=== PATIENT | female | born 1960 | race Caucasian/White ===

== ENCOUNTER 2018-11-12 06:32 | Day surgery (SDC) | payer OTHER, MEDICAID ==
[~2018-11-12] VITALS: Ht 160 cm; Wt 117.9 kg
[~2018-11-12 06:32] MED LIST: ALBU0.63 NEB; BUPIVACAINE-EPI 0.25%-1:200000 MPF 30 ML VIAL. ONE; DULO60CA6 PO; HYDR25TA PO; LOPE2CAP PO; PANTOPRAZOLE PO; PROP20TA PO; SURGICEL HEMOSTAT 4X8 EACH. ONE; TRAZ-86 PO; ZOLP5TAB5 PO
[2018-11-12] MEDS ORDERED: PROCHLORPERAZINE 10 MG/2 ML VIAL. IV PRN (07:00)
[2018-11-12] MEDS ORDERED: IV RINGERS,LACTATED 1000ML 1,000 ML IV SCH (07:00)
[2018-11-12] MEDS ORDERED: ACETAMINOPHEN 500 MG TABLET PO ONE (07:00)
[2018-11-12] MEDS ORDERED: fentaNYL PF VIAL 100 MCG/2 ML VIAL IV PRN (07:00)
[2018-11-12] MEDS ORDERED: LIDOCAINE 2% PF 5 ML VIAL. ONE (07:26)
[2018-11-12] MEDS ORDERED: PROPOFOL 20 ML IV ONE (07:26)
[2018-11-12] MEDS ORDERED: ROCURONIUM 50 MG/5 ML VIAL. ONE (07:27)
[2018-11-12] MEDS ORDERED: ONDANSETRON PF 4 MG/2 ML VIAL. ONE (07:27)
[2018-11-12] MEDS ORDERED: fentaNYL PF VIAL 100 MCG/2 ML VIAL ONE ×2 (07:27→10:04)
[2018-11-12] MEDS ORDERED: DEXAMETHASONE SOD PHOS 4 MG/ML VIAL ONE ×2 (07:27)
[2018-11-12] MEDS ORDERED: MIDAZOLAM HCL/PF 2 MG/2 ML VIAL. ONE (07:28)
[2018-11-12] MEDS ORDERED: HYDROCORTISONE SOD SUCC/PF 100 MG/2 ML VIAL. ONE (07:50)
[2018-11-12] MEDS ORDERED: SCOPOLAMINE 1.5MG PATCH. TD ONE (08:00)
[2018-11-12] MEDS ORDERED: INDOCYANINE GREEN 2.5 MG in TOTAL VOLUME SYRINGE 1 ML IVP ONE (08:00)
[2018-11-12] MEDS ORDERED: GLYCOPYRROLATE 1 MG/5 ML VIAL. ONE (08:54)
[2018-11-12] MEDS ORDERED: NEOSTIGMINE METHYLSULFATE 5 MG/5 ML SYRINGE. ONE (08:54)
--- NOTE | 2018-11-12 09:12 | DISCH ---
DISCHARGE INSTRUCTIONS Condition on Discharge Condition on Discharge: Stable Activity After Discharge Activity Instructions for Disc: Avoid exertion Other activity instructions: No lifting >20lbs for 2 weeks Diet after Discharge Diet after Discharge: Low Fat Wound Incision Care Other wound/incision instructi: May shower in 24 hours Contacting the after DC Call your doctor for: If your condition worsens Follow-Up Follow up with: Dr Gould in 2 weeks SHERRIE GOULD MD Nov 12, 2018 09:12
--- NOTE | 2018-11-12 09:17 | PDOC4 ---
Operative Note Operative Note Date: 11/12/2018 Preoperative diagnosis: Chronic cholecystitis cholelithiasis Postoperative diagnosis: Same Procedure: Robotic-assisted laparoscopic cholecystectomy Surgeon: Castro Specimen: Gallbladder Dictation: Patient is a 58-year-old morbidly obese female who's had right upper quadrant abdominal pain and nausea vomiting or last month ultrasound showed gallstones. Procedure of robotic-assisted laparoscopic cholecystectomy was explained to the patient in detail risk benefits were also discussed including bleeding infection injury to intra-abdominal contents possibly necessitating further or open operations alternatives to this procedure also discussed with the patient who seemed to understand and gave both verbal and written consent to have the procedure performed. Patient was taken to the operating room placed in supine position general anesthesia was initiated once patient was sleep and intubated her abdomen was prepped and draped usual sterile fashion using ChloraPrep and area at the umbilicus is injected quarter percent Marcaine with epinephrine incision was made Lembert scalpel Veress needle was placed within the abdomen creating pneumoperitoneum once this complete a long 12 mm port was placed and a 5 mm camera was placed within the abdomen which was inspected no other abdomen maladies are noted a 5 mm port was placed in the left upper quadrant and the da Isa bariatric ports were placed in the right mid abdomen and one in the left mid abdomen. This point the robotic was brought in and docked all the port sites and the surgeon went to the robotic console using regular laparoscopic grasper through the left upper quadrant port the dome of the gallbladder is grasped and retracted cephalad program grasper is used to grasp the infundibular gallbladder retracted laterally exposing the triangle adherent tissues the triangle were taken down with a collect cautery exposing the cystic duct which was doubly clipped with hemoclips and transected with Endo Rock scissors the cystic artery was then visualized and clipped with a hemo- lock clip and transected with the hook electrocautery the gallbladder was taken off the liver with hook electrocautery. At this point surgeon returned to the operative field the gallbladder was placed within Endo Catch bag and removed from the umbilicus the right upper quadrant was irrigated suctioned dry hemostasis deemed to be appropriate and the pneumoperitoneum was reduced the robot was undocked from all ports all ports removed the fascial defect at the umbilicus closed [id number] 0 Vicryl suture and skin was approximate all port sites for septic and a Monocryl Mastisol Steri-Strips and island dressings were applied. The patient was awakened and a bated operating room taken to recovery in stable condition all sponge instrument needle counts listed as correct estimated blood loss 10 mL. SHERRIE GOULD MD Nov 12, 2018 09:17
[2018-11-12] MEDS ORDERED: SEVOFLURANE > 120 MINUTES. IH ONE (09:25)
[2018-11-12] MEDS ORDERED: OXYC1TAB15 PO (09:29)
[2018-11-12] MEDS ORDERED: IBUP-1060 PO (09:35)
[2018-11-12] MEDS ORDERED: IBUPROFEN 400 MG TABLET. PO ONE (09:45)
[2018-11-12] MEDS: fentaNYL PF VIAL 100 MCG/2 ML VIAL IV PRN ×2 (10:06→10:19)
[2018-11-12 10:43] VITALS: BP 120/68
--- NOTE | 2018-11-15 16:05 | PATHOLOGY ---
[facility] Accession Number: [id number] . 01 Material submitted: . gallbladder - GALLBLADDER . 01 Clinical history: . Biliary dyskinesia . 02 Diagnosis: Gallbladder, cholecystectomy: - Chronic cholecystitis. - Cholesterolosis. - Cholelithiasis. - Cystic duct lymph node with mild fatty change. (SKM/db; 11/15/2018) LBQ/11/15/2018 . 02 Electronically signed: . Thong Parra MD, Pathologist NPI- [id number] . 01 Gross description: . The specimen is received in formalin labeled "Sanchez, Shamika, gallbladder" and consists of an intact pink-green and wrinkled gallbladder measuring 8.5 cm in length and up to 3.5 cm in diameter. The margin is inked black. Opening reveals a lumen filled with tenacious green bile and a single oval smooth green-yellow calculus measuring 3.8 x 2.4 cm. The mucosa is green-brown with yellow stippling and an average wall thickness of 0.1 cm. No masses are identified. Adjacent the gallbladder neck is a lymph node candidate measuring 1.8 x 0.6 cm. Cash Management Clerk sections are submitted in A1-A2. (SDY; 11/12/2018) SYU/SYU . 02 Pathologist provided ICD-10: K80.10, K82.4 . 02 CPT . 232675 Specimen Comment: A courtesy copy of this report has been sent to Specimen Comment: [phone]. Specimen Comment: Report sent to Specimen Comment: A duplicate report has been generated due to demographic update Specimen Comment: of the patient's Date of , Age, Gender, and/or Specimen Date. Specimen Comment: Please review patient results, reference intervals, and calculated Specimen Comment: results that may have been affected by this change. Performed at: 01 [facility] [address], [place] [id number] MD Enzo Huston MD Phone: [phone] Performed at: [facility] [address] [place], [place] [id number] MD Gerald Parham MD Phone: [phone]
== END 2018-11-12 11:15 | disposition home or self-care (01) ==
LOC: SURG 06:32
PROVIDERS: ATTEND Surgery
DX: K80.10 Calculus of gallbladder with chronic cholecystitis without obstruction (principal); R59.1 Generalized enlarged lymph nodes; K82.8 Other specified diseases of gallbladder; Z68.42 Body mass index [BMI] 45.0-49.9, adult; Z96.652 Presence of left artificial knee joint; Z88.5 Allergy status to narcotic agent; Z88.0 Allergy status to penicillin; Z88.8 Allergy status to other drugs, medicaments and biological substances
CPT/HCPCS: 47562; 88304; A7015; J1100; J1720; J1956; J2001; J2250; J2405; J2704; J2710; J3010; J3490; J7030; S2900